=== PATIENT | female | born 1985 | race Caucasian/White ===

== ENCOUNTER 2018-04-13 22:30 | Emergency (ER) | payer OTHER ==
[~2018-04-13] VITALS: Ht 172.7 cm; Wt 143.8 kg
[2018-04-13 22:38] VITALS: BP 139/92
[2018-04-13] MEDS ORDERED: NS 1000ML 1,000 ML STA ×2 (22:52→23:00)
[2018-04-13] MEDS ORDERED: DUONEB 0.5 MG-3 MG/3 ML SOLN IH STA (22:52)
[2018-04-13] MEDS ORDERED: TORADOL IV STA (22:52)
[2018-04-13] MEDS ORDERED: DUONEB 0.5 MG-3 MG/3 ML SOLN IH ONE (23:00)
[2018-04-13] MEDS ORDERED: VENL150C PO (23:04)
[2018-04-13] MEDS ORDERED: LEVO50TA6 PO (23:04)
[2018-04-13] MEDS ORDERED: NS 1000ML 1,000 ML ONE (23:04)
[2018-04-13] MEDS ORDERED: TORADOL ONE (23:05)
--- NOTE | 2018-04-13 23:08 | ER.PDOC ---
General Chief Complaint: Requesting Medical Care Stated Complaint: SORE THROAT Time seen by MD: 22:45 Source: patient Exam Limitations: no limitations History of Present Illness Timing/Duration: gradual Associated Symptoms: fever/chills, mod sore throat, congestion, earache (L), cough Severity: moderate Allergies: Coded Allergies: No Known Allergies (Unverified , 04/13/18) Home Meds Reported Medications Levothyroxine Sodium (LEVOTHYROXINE SODIUM) 50 Mcg Tablet, 1 TAB PO DAILY, #30 TAB 5 Refills 04/13/18 Venlafaxine Hcl (EFFEXOR XR) 150 Mg Cap.er.24h, 1 CAP PO DAILY, #30 CAP 1 Refill 04/13/18 Past Medical History Medical History: other Surgical History: other LMP (females 10-50): 3 months Family History Significant Family History: no pertinent family hx Social History Smoking: greater than 1 pack/day Constitutional: fever Eyes: denies no symptoms reported, denies see HPI, denies blindness, denies blurred vision, denies drainage, denies decreased acuity, denies foreign body sensation, denies inflammation, denies pain, denies photophobia, denies previous injury, denies shadows, denies tunnel vision, denies vision change, denies contact lenses, denies glasses, denies other Ears: pain Nose: denies no symptoms reported, denies see HPI, denies clots; congestion; denies epistaxis, denies pain, denies bloody discharge, denies clear discharge, denies purulent discharge, denies serosanguinous discharge, denies previous injury, denies other Mouth: no symptoms reported Throat: denies no symptoms reported, denies see HPI; pain; denies swelling, denies discharge, denies neck stiffness, denies hoarse, denies aphonia, denies muffled; painful swallowing; denies difficulty with fluids, denies previous injury, denies other Respiratory: denies no symptoms reported, denies see HPI; cough; denies orthopnea; shortness of breath; denies stridor; wheezing; denies other Cardiovascular: no symptoms reported; denies see HPI, denies chest pain, denies edema, denies palpitations, denies syncope, denies other Gastrointestinal: no symptoms reported Musculoskeletal: muscle pain Skin: no symptoms reported Neurological: no symptoms reported Hematologic/Lymphatic: no symptoms reported Immunological/Allergic: no symptoms reported All Other Systems: Reviewed and Negative Physical Exam General Appearance: mild distress Head/Neck: cervical lymphadenopathy Eyes: eyes nml inspection, PERRL, no nystagmus Mouth: lips, gums nml, no drooling, no thrush, membranes nml Throat: pharyngeal erythema Ears/Nose: nml inspection Respiratory: rales, rhonchi CVS: tachycardia Abdomen: non-tender, no organomegaly Extremities: non-tender, ROM nml Skin Exam: Normal Color, Warm/Dry NEURO/PSYCH: oriented X3, mood/effect nml Comments R rales/rhonchi. L Submandibular Lymphadenopathy Results/Orders Results/Orders Laboratory Tests Test 04/13/18 23:15 White Blood Count 15.6 10^3/uL (4.5-11.0) Red Blood Count 4.83 10^6/uL (4.00-5.20) Hemoglobin 12.6 g/dL (12.0-15.0) Hematocrit 39.1 % (36.0-46.0) Mean Corpuscular Volume 81.0 fL (78-100) Mean Corpuscular Hemoglobin 26.1 pg (26-34) Mean Corpuscular Hemoglobin Concent 32.2 g/dL (33-37) Red Cell Distribution Width 16.3 % (11.5-14.5) Platelet Count 504 10^3/uL (150-400) Mean Platelet Volume 9.2 fL (7.8-11.0) Neutrophils (%) (Auto) 61.4 % (41.0-85.0) Lymphocytes (%) (Auto) 29.4 % (24.0-44.0) Monocytes (%) (Auto) 5.8 % (5.0-12.0) Neutrophils # (Auto) 9.6 10^3/uL (1.8-7.7) Lymphocytes # (Auto) 4.6 10^3/uL (1.0-4.8) Monocytes # (Auto) 0.9 10^3/uL (0.3-0.8) Absolute Immature Granulocyte (auto 0.04 10^3 u/L (0-2) Eosinophils % 2.7 % (0.0-5.0) Basophils % 0.4 % (0.0-0.2) Basophils # 0.1 10^3/uL (0.0-0.1) Eosinophil Count 0.4 10^3/uL (0.0-0.2) Sodium Level 139 mmol/L (132-145) Potassium Level 4.0 mmol/L (3.6-5.2) Chloride Level 101.0 mmol/L (96-109) Carbon Dioxide Level 28.2 mmol/L (20.0-32) Anion Gap 13.8 Blood Urea Nitrogen 16 mg/dL (7-18) Creatinine 0.93 mg/dL (0.59-1.40) Estimated GFR () 84.0 (>/=60) BUN/Creatinine Ratio 17.0 Glucose Level 113 mg/dL (70-110) Calcium Level 9.8 mg/dL (8.4-10.5) Total Bilirubin 0.2 mg/dL (0.2-1.0) Aspartate Amino Transf (AST/SGOT) 20 U/L (0-35) Alanine Aminotransferase (ALT/SGPT) 33 U/L (12-78) Alkaline Phosphatase 72 U/L (50-136) Total Protein 8.1 g/dL (6.4-8.2) Albumin 3.6 g/dL (3.4-5.0) Globulin 4.5 Percent Immature Gran (Cell Imm) 0.30 % (0.00-0.50) Influenza Type A Antigen NEGATIVE (NEG) Influenza B Immunofluorescence NEGATIVE (NEG) Group A Streptococcus Screen NEGATIVE (NEGATIVE) Administered Medications Medications (Trade) Dose Ordered Sig/Nat Route PRN Reason Start Time Stop Time Status Last Admin Dose Admin Sodium Chloride 1,000 ml @ 0 mls/hr Q0M STAT IV 04/13/18 22:52 04/13/18 22:53 UNV 04/13/18 23:23 Ketorolac Tromethamine (Toradol) 30 mg STAT STAT IV 04/13/18 22:52 04/13/18 22:53 UNV 04/13/18 23:23 Albuterol/ Ipratropium (Duoneb 0.5 Mg-3 Mg/3 ml Soln) 3 ml STAT STAT IH 04/13/18 22:52 04/13/18 22:53 UNV 04/13/18 23:04 EKG/XRAY/CT/US XRAY: chest XRAY Comments: neg Departure Time of Disposition: 00:27 Disposition: 01 HOME, SELF-CARE Impression: Primary Impression: Bronchitis Condition: Stable Referrals: PCP,UNKNOWN (PCP) PRIMARY CARE PROVIDER Additional Instructions: Rx Azithromycin and Cheratussin AC Duration or Time Spent with Pa: 20 THEODORE DALAL MD Apr 13, 2018 23:08
[2018-04-13 23:21] LABS: BASOPHIL # 0.1 10^3/uL (0.0-0.1); BASOPHIL % 0.4 % (0.0-0.2); EOSINOPHIL # 0.4 10^3/uL (0.0-0.2); EOSINOPHIL % 2.7 % (0.0-5.0); HEMOGLOBIN 12.6 g/dL (12.0-15.0); LYMPHOCYTES # 4.6 10^3/uL (1.0-4.8); LYMPHOCYTES % 29.4 % (24.0-44.0); MEAN CELL HGB 26.1 pg (26-34); MEAN CELL HGB CONCENTRATION 32.2 g/dL (33-37); MEAN PLATELET VOLUME 9.2 fL (7.8-11.0); MONOCYTES # 0.9 10^3/uL (0.3-0.8); MONOCYTES % 5.8 % (5.0-12.0); NEUTROPHIL # 9.6 10^3/uL (1.8-7.7); NEUTROPHILS % 61.4 % (41.0-85.0); RED CELL DISTRIBUTION WIDTH 16.3 % (11.5-14.5); WHITE BLOOD CELL 15.6 10^3/uL (4.5-11.0)
[2018-04-13 23:29] VITALS: BP 132/67
--- NOTE | 2018-04-13 23:32 | DIREP ---
PROCEDURE:CHEST 1 VIEW COMPARISON:None. INDICATIONS:productive cough, dyspnea FINDINGS: LUNGS/PLEURA:No significant pulmonary parenchymal abnormalities. No effusions. VASCULATURE:Mildly prominent central pulmonary vascular markings. CARDIAC:Normal. No cardiac silhouette abnormality or cardiomegaly. MEDIASTINUM:Normal. No visible mass or adenopathy. BONES:Normal. No fracture or visible bony lesion. OTHER:Negative. CONCLUSION:No consolidation or pleural effusion. Dictated by: Moises Rubio MD on 04/13/2018 at 11:30 PM
[2018-04-13 23:38] LABS: CALCIUM 9.8 mg/dL (8.4-10.5); CARBON DIOXIDE 28.2 mmol/L (20.0-32)
[2018-04-14] MEDS ORDERED: ROCEPHIN ONE (00:22)
[2018-04-14] MEDS ORDERED: NS 100ML 100 ML IV ONE (00:22)
[2018-04-14] MEDS ORDERED: ROCEPHIN 1,000 MG in NS 100ML 100 ML IV STA (00:24)
[2018-04-14 00:28] VITALS: BP 138/77
[2018-04-14 02:34] VITALS: BP 138/77
== END 2018-04-14 01:14 | disposition home or self-care (01) ==
LOC: ER 22:30
DX: J40 Bronchitis, not specified as acute or chronic (principal); Z79.899 Other long term (current) drug therapy
CPT/HCPCS: 36415; 71045; 80053; 85025; 87070; 87804 ×2; 87880; 94640; 96365; 96375; 99284; J0696 ×2; J1885; J7030; J7050 ×2; J7620

== ENCOUNTER 2023-01-05 20:21 | Emergency (ER) | payer OTHER ==
[~2023-01-05] VITALS: Ht 162.6 cm; Wt 113.4 kg
[~2023-01-05 20:21] MED LIST: LEVO50TA6 PO; VENL150C4 PO
[2023-01-05] MEDS ORDERED: ZOFRAN ODT SL STA (20:31)
[2023-01-05] MEDS ORDERED: DECADRON PO STA (20:34)
[2023-01-05] MEDS ORDERED: TORADOL IM STA (20:34)
[2023-01-05 20:35] VITALS: BP 121/87; PULSE 91; RESP 18; TEMP 97.8; TEMP 98; O2SAT 98
[2023-01-05 21:06] LABS: INFLUENZA VIRUS A ANTIGEN NEGATIVE (NEG); INFLUENZA VIRUS B ANTIGEN NEGATIVE (NEG)
[2023-01-05] MEDS ORDERED: TORADOL ONE (21:16)
[2023-01-05] MEDS ORDERED: ZOFRAN ODT ONE (21:16)
[2023-01-05] MEDS ORDERED: DECADRON ONE (21:16)
[2023-01-05 21:22] VITALS: BP 90/66; PULSE 110; RESP 18; TEMP 97.8; O2SAT 97
== END 2023-01-05 21:28 | disposition home or self-care (01) ==
LOC: ER 20:21 → EEVIPCON 20:21 → ER 21:28
DX: J06.9 Acute upper respiratory infection, unspecified (principal); H66.91 Otitis media, unspecified, right ear; E07.9 Disorder of thyroid, unspecified; I10 Essential (primary) hypertension; Z90.49 Acquired absence of other specified parts of digestive tract; Z20.822 Contact with and (suspected) exposure to COVID-19
CPT/HCPCS: 99283; 87426; 96372; 87070; 87880; 87804 ×2; J8540; J1885